=== PATIENT | male | born 1995 | race Caucasian/White ===

== ENCOUNTER → 2020-08-03 08:34 | Outpatient (CLI) | payer BC, SELFPAY ==
--- NOTE | 2020-08-03 08:38 | US_ITS ---
STUDY: ABDOMINAL ULTRASOUND - RIGHT UPPER QUADRANT REASON FOR VISIT: Male, 24 years old ABD PAIN , GENERALIZED ABD PAIN TECHNIQUE: Ultrasound evaluation of the right upper quadrant was performed with real-time and static love-scale imaging. TECHNICAL QUALITY: Adequate. COMPARISON: None. FINDINGS: Liver: The liver measures 14.9 cm. There is increased echogenicity consistent with fatty infiltration. The bile ducts are within normal limits. There is hepatic color flow. The direction of portal flow is hepatopetal. There is no demonstrated mass lesion. Gallbladder: Normal distended gallbladder. The gallbladder wall measures 2.8 mm. There is a negative sonographic Galvez''s sign. There is no pericholecystic fluid. There are no gallstones. Common Bile Duct (C.B.D.): The common bile duct measures 3.3 mm. Pancreas: Normal size of the head, body and tail of the pancreas. There is normal echogenicity of the pancreas. There is no demonstrated pancreatic mass or cyst. Right Kidney: Normal size of the right kidney. The right kidney measures the right kidney measures 11 cm x 4.9 cm x 4.6 cm. Normal renal cortex. The right cortex measures 1.7 cm. There is no demonstrated renal mass or cyst. There is no right hydronephrosis. US/Abdomen Limited IMPRESSION: Normal right upper quadrant ultrasound examination. Electronically Signed: Robin Bennett, at 10:46 EDT , Service support ,
== END ==
PROVIDERS: PCP Family Medicine; Referring Provider Family Medicine; Visit Provider Family Medicine
DX: R10.84 Generalized abdominal pain (principal)
CPT/HCPCS: 76705

== ENCOUNTER → 2020-08-14 15:48 | Outpatient (CLI) | payer BC, SELFPAY ==
[2015-08-20 11:58] VITALS: BMI 26.1
[2020-08-14 19:10] LABS: Thyroid Stim Hormone (TSH) 1.25 uIU/mL (0.358-3.74)
[2020-08-16 16:08] LABS: Endomysial Antibody IgA Negative (Negative)
[2020-08-16 20:56] LABS: Deamidated Gliadin IgA 6 units (0-19); Deamidated Gliadin IgG 3 units (0-19); Immunoglobulin A 243 mg/dL (90-386); t-Transglutaminase IgA <2 U/mL (0-3)
== END ==
PROVIDERS: PCP Family Medicine; Referring Provider Family Medicine; Visit Provider Family Medicine
DX: R10.84 Generalized abdominal pain (principal)
CPT/HCPCS: 36415; 82784; 83516; 84443; 86255

== ENCOUNTER → 2021-03-30 12:07 | Outpatient (CLI) | payer BC, SELFPAY ==
--- NOTE | 2021-03-30 12:10 | RAD_ITS ---
STUDY: X-RAY - UNILATERAL RIBS ( RIGHT ) WITH CHEST REASON FOR EXAM: Male, 25 years old. PAIN TECHNIQUE - RIBS: 4 view(s) of the ribs. TECHNIQUE - CHEST: PA and lateral views of the chest. COMPARISON: 08/20/2015 FINDINGS - RIBS: Normal visualized ribs without a demonstrated fracture. FINDINGS - CHEST: The lungs are clear and expanded. There is no demonstrated pleural abnormality. Normal size heart. Normal mediastinum and milli. Normal visualized pulmonary arteries. Normal visualized aortic arch and descending thoracic aorta. Normal visualized thoracic spine. Normal visualized ribs, clavicles, and shoulders. There is no demonstrated abnormality of the visualized soft tissue structures of the upper abdomen. RAD/Ribs Uni Min 3V w/PA Chest IMPRESSION: RIBS: Normal x-ray examination of the ribs. CHEST: Normal x-ray examination of the chest. Electronically Signed: Brennon Blas MD at 6:23 EDT Tel , Service support ,
== END ==
PROVIDERS: PCP Family Medicine; Referring Provider Family Medicine; Visit Provider Family Medicine
DX: R07.81 Pleurodynia (principal)
CPT/HCPCS: 71101

== ENCOUNTER → 2021-04-04 12:46 | Outpatient (CLI) | payer BC, SELFPAY ==
[2015-08-20 11:58] VITALS: BMI 26.1
--- NOTE | 2021-04-04 12:49 | US_ITS ---
STUDY: RENAL ULTRASOUND - COMPLETE REASON FOR EXAM: Male, 25 years old. rule out polycystic kidney disease TECHNIQUE: Ultrasound evaluation of the kidneys was performed with real-time and static sheldon-scale imaging. COMPARISON: None. FINDINGS: RIGHT KIDNEY: Normal location of the right kidney, which is normal in size. The right kidney measures 11.5 x 5.6 x 5.1 cm. There is a normal cortex of the right kidney. The renal cortex measures 1.8 cm. There is no right renal mass or cyst. There are no right renal calculi. There is no right hydronephrosis. DISTAL RIGHT URETER: There is non-visualization of the distal right ureter. There is no demonstrated right ureterovesical junction calculus. There is a visualized right ureteral jet. LEFT KIDNEY: Normal location of the left kidney, which is normal in size. The left kidney measures 11.7 x 5.7 x 5.2 cm. There is a normal cortex of the left kidney. The renal cortex measures 2.3 cm. There is no left renal mass or cyst. There are no left renal calculi. There is no left hydronephrosis. DISTAL LEFT URETER: There is non-visualization of the distal left ureter. There is no demonstrated left ureterovesical junction calculus. There is a visualized left ureteral jet. BLADDER: The distended urinary bladder has a volume of 126 ml. The empty urinary bladder has a volume of ml. There is a normal wall thickness of the distended urinary bladder. There is no demonstrated mass within the urinary bladder. There are no demonstrated bladder calculi. US/Kidney and Bladder IMPRESSION: Normal ultrasound of the kidneys and urinary bladder. Electronically Signed: Jose Phillips MD at 17:09 EDT , Service support ,
== END ==
PROVIDERS: PCP Family Medicine; Referring Provider Family Medicine; Visit Provider Family Medicine
DX: R10.84 Generalized abdominal pain (principal); Z82.71 Family history of polycystic kidney
CPT/HCPCS: 76770

== ENCOUNTER 2021-04-08 22:07 | Inpatient (IN) | payer BC, SELFPAY ==
[2021-04-08 22:08] VITALS: BP 168/96; PULSE 110; PULSE 137; RESP 24; TEMP 38.8; O2SAT 92; BMI 34.4
[2021-04-08 22:13] VITALS: BP 168/96; PULSE 110; RESP 24; TEMP 38.8; O2SAT 92
[2021-04-08 22:29] VITALS: O2SAT 94
[2021-04-08 22:44] LABS: Bacteria 0 SEEN /hpf (None Seen); Mucous, Urine 0 SEEN /hpf (<or=2+); Red Blood Cells-Urine 0 SEEN /hpf (0-5); Squamous Epithelial Cells - UA 0 SEEN /hpf (0-5); White Blood Cells 0 SEEN /hpf (0-5)
[2021-04-08 22:46] LABS: Absolute Lymphocyte Count 1.04 X10^3/uL (0.83-4.51); Absolute Neutrophil Count 21.3 X10^3/uL (2.0-7.7); Basophil# 0.05 X10^3/uL; Basophil% 0.2 % (0-1); Color, Urine Straw (Yellow); Eosinophil# 0.06 X10^3/uL; Eosinophils% 0.2 % (0-5); Glucose, Dipstick Normal (Normal); Hematocrit 43.1 % (40-54); Hemoglobin 14.7 g/dL (13.0-16.5); Ketone-Dipstick 5 mg/dl (Negative); Leukocyte Esterase-Dipstick Negative /ul (Negative); Lymphocyte # 1.04 X10^3/ul (0.83-4.51); Lymphocyte % 4.3 % (19-41); Mean Corp Hgb Conc 34.1 g/dL (32-36); Mean Corpuscular Hgb 29.9 pg (27.0-32.0); Mean Corpuscular Volume 87.6 fL (80-94); Mean Platelet Vol. 8.8 fl (6.2-12.0); Monocyte# 1.67 X10^3/uL; Monocyte% 6.8 % (0-10); NRBC Flagged by Analyzer 0 % (0-5); Neutrophil # 21.32 X10^3/uL (2.7-7.7); Neutrophil % 87.4 % (47-70); Nitrite-Dipstick Negative (Negative); Occult Blood-Urine Negative /ul (Negative); POSITIVE DIFFERENTIAL YES; Platelet Count 541 K/mm3 (150-450); Protein-Dipstick Negative (Negative); RBC Distribution Width CV 11.9 % (11.6-14.6); RBC Distribution Width SD 38.3 fl (35.1-43.9); Red Blood Count 4.92 M/mm3 (4.6-6.2); Specific Gravity, Urine 1.005 (1.002-1.030); Urine Bilirubin Dipstick Negative (Negative); Urine Clarity Clear (Clear); Urine Urobilinogen Normal (Normal); White Blood Count 24.4 K/mm3 (4.4-11.0)
[2021-04-08] MEDS: Morphine 4 MG/ML Syringe IV (22:49)
[2021-04-08] MEDS: Acetaminophen 500 MG Tablet 1000 MG PO (22:49)
[2021-04-08] MEDS: 0.9% Normal Saline 1,000 ML 1000 ML IV (22:49)
--- NOTE | 2021-04-08 22:50 | RAD_ITS ---
STUDY: X-RAY CHEST REASON FOR EXAM: Male, 25 years old. Dyspnea TECHNIQUE: Single AP portable view of the chest. COMPARISON: 03/30/2021. FINDINGS: Marked change in the appearance of the right lung which is now markedly opacified with elevation of the right hemidiaphragm. This rapid change could represent central mucous plugging and marked atelectasis. CT scan recommended. Infiltrate and effusion are not excluded. Left lung is clear. Normal size heart. Normal mediastinum and milli. Normal visualized pulmonary arteries. Normal visualized aortic arch and descending thoracic aorta. Normal visualized thoracic spine. Normal visualized ribs, clavicles, and shoulders. There is no demonstrated abnormality of the visualized soft tissue structures of the upper abdomen. RAD/Chest 1 View (Portable) IMPRESSION: Significant, rapid changes since previous study. Near-complete opacification of the right hemithorax. CT is recommended. Electronically Signed: Jose Phillips MD at 23:21 EDT , Service support ,
[2021-04-08 22:59] LABS: ALB/GLOB Ratio 0.6 RATIO (0.9-2.4); AST(SGOT) 22 U/L (15-37); Alanine Aminotransfer ALT/SGPT 83 U/L (16-61); Albumin, Serum 3.2 g/dL (3.2-5.0); Alkaline Phosphatase 101 U/L (45-117); Anion Gap 9 (5-15); BUN 5 mg/dL (7-18); BUN/Creat Ratio 5.1 RATIO (10-20); Calcium,Total 9.5 mg/dL (8.5-10.1); Chloride 97 mmol/L (98-107); Creatinine, Serum 0.98 mg/dL (0.70-1.30); EST Glomerular Filtration Rate 100 mL/min (>60); Est Glom Filt Rate - Afr Amer 121 mL/min (>60); Estimated Creatinine Clearance 108.67 ml/min; Glucose 107 mg/dL (74-106); Protein, Total 8.2 g/dL (6.4-8.2); Sodium Level 133 mmol/L (136-145)
--- NOTE | 2021-04-08 22:59 | ED.VIS.DYS ---
HPI History of Present Illness Chief Complaint: Shortness of Breath Informant: patient Onset/Context/Timing Onset: Weeks (2) Context: gradual Timing: Continuous Quality: Positive for - (Sharp pain) Worsened by: Coughing and other (Deep breathing) Relieved by: other (Heat, cold, massage) Associated Symptoms cough, fever, chills and clear sputum; Negative for rhinorrhea, post nasal drip, ear pain or sore throat Chest Pain: Positive for Sharp Narrative Narrative: Patient presents with shortness of breath that has been getting progressively worse over the past 2 weeks. Patient states it is gradually gotten worse. Patient states he does have some pain in his right upper thoracic area. Patient states it is sharp. Patient states it is worse with coughing, deep breathing, sneezing, or vomiting. Patient states it did get better with some massage as well as some heat and cold treatments. Patient admits to a cough but is only having clear sputum production. Patient admits to fevers and chills. Patient admits to some right upper chest pain. Patient describes this as sharp. PE Risk Factors: Negative for Cancer, OCP + Smoking + > 35, Prior DVT or PE, Recent surgery and Recent travel [facility] Home Medications omeprazole 20 mg PO DAILY #30 capsule 08/20/15 [Rx Last Taken Unknown] sucralfate 1 g PO 4X/DAY #400 ml 08/20/15 [Rx Last Taken Unknown] tizanidine 4 mg PO Q6H PRN PRN 04/08/21 [History Last Taken Unknown] Allergy/AdvReac Type Severity Reaction Status Date / Time No Known Allergies Allergy Verified 08/20/15 11:57 Surgical History History of adenoidectomy Hx of tympanostomy tubes Social History Smoking Status: Never smoker ROS ROS ED Constitutional Constitutional ED: Reports chills, fever(s) and sweats Eyes Eyes: Denies blurry vision or change in vision ENT ENT ED: Denies rhinorrhea or sore throat Cardiovascular Cardiovascular: Reports chest pain; Denies palpitations Respiratory/Chest Respiratory/Chest: Reports cough and dyspnea Gastrointestinal Gastrointestinal: Reports nausea and vomiting Genitourinary Genitourinary ED: Denies dysuria or hematuria Musculoskeletal Musculoskeletal: Reports back pain; Denies neck pain Integumentary Denies abscess or rash Neurologic Neurologic: Reports headache(s); Denies weakness Allergic/Immunologic Allergic/Immunologic ED: Denies mouth swelling or urticaria EXAM Physical Exam Const Vital Signs: 04/08/21 22:08 04/08/21 22:13 04/08/21 22:29 Temperature 102 F H 102 F H Temperature Source Oral Oral Pulse Rate 110 H 110 H Respiratory Rate 24 H 24 H Respiratory Effort Normal Non-Labored Respiratory Depth Normal Respiratory Pattern Normal Blood Pressure 168/96 H 168/96 H Blood Pressure Mean 120 120 Pulse Ox 92 92 Oxygen Delivery Method Room Air Room Air Room Air Oxygen Flow Rate (L/min) 04/08/21 23:13 04/09/21 00:00 04/09/21 00:08 Temperature 100 F H 99.3 F H Temperature Source Temporal Temporal Pulse Rate 122 H 122 H Respiratory Rate 23 H 23 H Respiratory Effort Respiratory Depth Respiratory Pattern Blood Pressure 144/79 H 152/78 H Blood Pressure Mean 100 102 Pulse Ox 92 89 94 Oxygen Delivery Method Room Air Room Air Nasal Cannula Oxygen Flow Rate (L/min) 2 04/09/21 01:00 04/09/21 02:00 Temperature 99.3 F H 98.3 F Temperature Source Temporal Temporal Pulse Rate 113 H 113 H Respiratory Rate 26 H 23 H Respiratory Effort Respiratory Depth Respiratory Pattern Blood Pressure 134/70 H 144/106 H Blood Pressure Mean 91 118 Pulse Ox 95 95 Oxygen Delivery Method Nasal Cannula Nasal Cannula Oxygen Flow Rate (L/min) 2 2 Positive well nourished and well developed General Appearance ED: well developed HEENT Reports moist mucous membranes normocephalic and atraumatic Neck supple and no JVD Resp normal respiratory effort Auscultation: diminished lung sounds diffuse Cardio regular rhythm and no murmurs Rate: regular rate and tachycardic Rhythm: regular rhythm GI non-tender and non-distended Auscultation: normoactive bowel sounds Palpation: soft Extremity normal to inspection General Extremety ED: Negative for edema or tenderness General Extremity: Negative for edema Neuro oriented x3, CN's II-XII intact bilaterally and no sensory deficits noted Sensorium / Orientation: alert Motor Exam: strength 5/5 throughout Psych mental status grossly normal Skin Rashes: no rashes MDM MDM MDM Narrative Medical decision making narrative: Patient was given IV fluids, Tylenol, and morphine here. CBC shows a leukocytosis of 24.4. Platelets were elevated at 541. Comprehensive metabolic profile showed a slightly elevated total bilirubin of 1.3. Urinalysis was within normal limits. COVID-19 rapid antigen was obtained and was negative. D-dimer was obtained and was elevated at 2.82. Portable chest x-ray was obtained. There is 1 view. On my interpretation, there is a large pleural effusion on the right. There is no acute infiltrate noted. Cardiac silhouette was normal. Bony thorax is normal. Because of this and the elevated D-dimer, CTA of the chest was obtained. There is no evidence of pulmonary embolism or arterial dissection. There is a large loculated pleural effusion on the right with multiple areas of significant atelectasis. There is no infiltrate noted. There is no left pleural effusion. There is some mild left basilar atelectasis. This was interpreted by the radiologist and reviewed by myself. Lactate was obtained and was normal. Case was discussed with the hospitalist. He was in to evaluate the patient. He recommended starting the patient on Levaquin and vancomycin for possible pneumonia. This was ordered. Patient will be admitted. Patient and family understood and were agreeable with the plan. All questions were answered. Lab Data Attestation: I reviewed the patient's lab results. Labs: Laboratory Results - last 24 hr 04/08/21 04/08/21 04/08/21 22:25 22:25 22:25 WBC 24.4 H RBC 4.92 Hgb 14.7 Hct 43.1 MCV 87.6 MCH 29.9 MCHC 34.1 RDW Std Deviation 38.3 RDW Coeff of Eamon 11.9 Plt Count 541 H MPV 8.8 Immature Gran % (Auto) 1.100 H Neut % (Auto) 87.4 H Lymph % (Auto) 4.3 L [place] % (Auto) 6.8 Eos % (Auto) 0.2 Baso % (Auto) 0.2 Absolute Neuts (auto) 21.3 H Absolute Lymphs (auto) 1.04 Nucleated RBC % 0 Differential Comment SEE COMMENTS Diff Path Review May foll Platelet Estimate MOD INC RBC Morphology N CHROM Anisocytosis RARE D-Dimer Quant (PE/DVT) Sodium 133 L Potassium 4.0 Chloride 97 L Carbon Dioxide 27.0 Anion Gap 9 BUN 5 L Creatinine 0.98 Estim Creat Clear Calc 108.67 Est GFR (MDRD) Af Amer 121 Est GFR (MDRD) Non-Af 100 BUN/Creatinine Ratio 5.1 L Glucose 107 H Lactic Acid Calcium 9.5 Total Bilirubin 1.30 H AST 22 ALT 83 H Alkaline Phosphatase 101 Total Protein 8.2 Albumin 3.2 Globulin 5.0 H Albumin/Globulin Ratio 0.6 L Urine Color Straw Urine Clarity Clear Urine pH 7.0 Ur Specific [place] 1.005 Urine Protein Negative Urine Glucose (UA) Normal Urine Ketones 5 H Urine Occult Blood Negative Urine Nitrite Negative Urine Bilirubin Negative Urine Urobilinogen Normal Ur Leukocyte Esterase Negative Urine RBC 0 SEEN Urine WBC 0 SEEN Ur Squamous Epith Cells 0 SEEN Urine Bacteria 0 SEEN Urine Mucus 0 SEEN 04/08/21 04/09/21 22:45 01:47 WBC RBC Hgb Hct MCV MCH MCHC RDW Std Deviation RDW Coeff of Eamon Plt Count MPV Immature Gran % (Auto) Neut % (Auto) Lymph % (Auto) [place] % (Auto) Eos % (Auto) Baso % (Auto) Absolute Neuts (auto) Absolute Lymphs (auto) Nucleated RBC % Differential Comment Diff Path Review Platelet Estimate RBC Morphology Anisocytosis D-Dimer Quant (PE/DVT) 2.82 H* Sodium Potassium Chloride Carbon Dioxide Anion Gap BUN Creatinine Estim Creat Clear Calc Est GFR (MDRD) Af Amer Est GFR (MDRD) Non-Af BUN/Creatinine Ratio Glucose Lactic Acid 1.0 Calcium Total Bilirubin AST ALT Alkaline Phosphatase Total Protein Albumin Globulin Albumin/Globulin Ratio Urine Color Urine Clarity Urine pH Ur Specific [place] Urine Protein Urine Glucose (UA) Urine Ketones Urine Occult Blood Urine Nitrite Urine Bilirubin Urine Urobilinogen Ur Leukocyte Esterase Urine RBC Urine WBC Ur Squamous Epith Cells Urine Bacteria Urine Mucus Radiography Chest X-Ray - ED: 1 View, Read by ED Physician, Read by Radiologist and Right Effusion Diagnostic Testing: Radiology Impression Chest X-Ray 04/08/21 22:50 IMPRESSION: Significant, rapid changes since previous study. Near-complete opacification of the right hemithorax. CT is recommended. Electronically Signed: Jose Phillips MD at 23:21 EDT , Service support , Chest CTA 04/08/21 23:41 IMPRESSION: Negative CTA chest examination, without a demonstrated pulmonary embolism or arterial dissection. Large loculated pleural effusion on the right with multiple areas of significant atelectasis of the right lower lobe as well as right middle lobe and right upper lobe. Areas of mild atelectasis predominantly at the left lung base, remainder of the left lung parenchyma is clear. No left-sided pleural effusion. Diffuse fatty liver. Electronically Signed: Shanelle Jiménez MD at 0:26 EDT , Service support , Treatment and Re-Evaluation Vital Sign Attestation:: Vital signs were reviewed prior to admission. Patient is still slightly tachycardic but this is improved from before. Patient is now afebrile. Discharge Plan Dx/Rx/DC Orders Clinical Impression: Pleural effusion on right Disposition Disposition: Acute Care [facility]
[2021-04-08 23:13] VITALS: BP 144/79; PULSE 122; RESP 23; TEMP 37.7; O2SAT 92
[2021-04-08 23:16] LABS: D-Dimer Quantitative (DVT/PE) 2.82 FEU/ug/m (0.27-0.49)
[2021-04-08 23:21] LABS: Differential Indicated SCAN CRITERIA MET
[2021-04-08 23:23] LABS: Anisocytosis RARE; Differential Comment SEE COMMENTS; Platelet Estimate MOD INC (ADEQ); Red Cell Morphology N CHROM NORMAL (NORM C&C)
--- NOTE | 2021-04-08 23:41 | CT_ITS ---
STUDY: CTA CHEST REASON FOR EXAM: Male, 25 years old. Elevated D-dimer RADIATION DOSAGE (If Supplied By Facility): CTDIvol = ( 13.85 ) mGy, DLP = ( 566.37 ) mGycm TECHNIQUE: The examination was performed with the intravenous administration of IV 100mL Isovue-370. Post-processing of the angiographic images was performed, with multiplanar reformation and 3D reconstruction. Individualized dose optimization techniques were used for this CT. COMPARISON: None. FINDINGS: Normal enhancement of the main pulmonary artery and right and left pulmonary arteries. Normal enhancement of the bilateral peripheral pulmonary arteries. There is no demonstrated pulmonary embolism. Normal thoracic aorta and visualized great vessels. There is no demonstrated aortic dissection. Normal heart and pericardium. Calcified lymph nodes within the mediastinum which may represent sequela previous granulomatous infection. There is infracarinal lymph node enlargement measuring 1.8 x 1.0 cm. Normal hilar regions. Normal visualized trachea and bronchi. There is significant atelectasis involving the right lung field, most severely involving the right lower lobe Areas of left lower lobe and mild lingular atelectasis noted. Remainder of the left lung parenchyma is normal. There is a large right-sided loculated pleural effusion. There is prominent right-sided pericardial fat with significant stranding/inflammation at this level. Normal chest wall structures. Normal osseous structures. Upper abdomen reveals fatty infiltrations throughout the liver. Remainder of the visualized upper abdominal structures are unremarkable. No free fluid. CT/CTA Chest W/WO Contrast IMPRESSION: Negative CTA chest examination, without a demonstrated pulmonary embolism or arterial dissection. Large loculated pleural effusion on the right with multiple areas of significant atelectasis of the right lower lobe as well as right middle lobe and right upper lobe. Areas of mild atelectasis predominantly at the left lung base, remainder of the left lung parenchyma is clear. No left-sided pleural effusion. Diffuse fatty liver. Electronically Signed: Shanelle Jiménez MD at 0:26 EDT , Service support ,
[2021-04-09] VITALS (20 sets, daily range): BP systolic 132–181; BP diastolic 65–108; PULSE 105–145; RESP 22–56; TEMP 36.8–38.6; O2SAT 89–98; BMI 33.3
--- NOTE | 2021-04-09 | FLU_PTH ---
PATIENT: PIETER CAPPS LOC: MS3 U#:[id number] AGE/SX: 25/M ROOM: MO319 RE04/09/[address]: Dr. Bill Chang MD : 1995 BED: 1 DIS: 04/09/2021 SPEC #: [id number] RECD: 04/09/21 10:52 STATUS: SUNITHA IRIZARRY #: [id number] URBANO: 04/09/21 00:[address]: Bill Chang DEPT: CYTOLOGY RECD BY: Yaneth Hutchinson ENTERED: 04/09/21 13:44 SP TYPE: Fluid OTHR DR: MD Dr. Smith Caraballo MD Dr. Mark Tereletsky, DO Tissues: Pleural fluid, NOS Procedures: Special Stain Group II Surgery Specimen Level IV Cytospin Fluid HEADER OPERATION: Thoracentesis right PRE-OP DIAGNOSIS: Pleural effusion TISSUE SUBMITTED: Thoracentesis fluid for cytology DIAGNOSIS CYTOLOGY Thoracentesis fluid for cytology (cytospin and cell block): Negative for malignant cells. Special stain for acid fast bacilli is negative for organisms; matched control is appropriate. See comment. KEVEN:angeli 04/10/2021 COMMENT Clinical correlation and appropriate follow up are necessary. CYTOLOGY STUDY Slides are reviewed. CYTOLOGY GROSS Received is 5 ml of red cloudy fluid labeled with the patient's name and and designated per the requisition as thoracentesis. Submitted for cytology preparation including cell block. / angeli 04/09/21 TC:5 CPT: 54822, 36267 ,[id number]
[2021-04-09] MEDS: 0.9% Normal Saline 1,000 ML 1000 ML IV (00:02)
--- NOTE | 2021-04-09 01:51 | ED.RN ---
Per Dr. Justice mane with only 1 set of blood cultures being drawn at this time.
[2021-04-09] MEDS: levoFLOXacin IV 750 MG/150 ML BAG 100 MG IV (02:01)
--- NOTE | 2021-04-09 02:51 | PCM.HP.STD ---
[facility] - General General Date of Admission: 04/09/21 Date of Service: 04/09/21 Chief Complaint: Right-sided chest pain, shortness of breath HPI Narrative PIETER CAPPS, is a 25 M who presents to the emergency room at [facility] with a chief complaint of right-sided chest pain, cough productive of white sputum, and shortness of breath over the last 2 weeks. Patient denies any fever, he stated today he had chills. Patient has no chronic medical problems, he denies any contact with sick people, he has had one vaccination for COVID-19. Work-up in the emergency room included a chest x-ray which showed a large right pleural effusion, CT of the chest was performed which confirmed this, there were areas of atelectasis noted in the right lung, no active infiltrate was read out as being present. No evidence of pulmonary emboli were noted. Patient's white blood cell count was elevated, his D-dimer was elevated. Patient's sodium was slightly low at 133, bilirubin was elevated at 1.3, patient's lactic acid was 1. Patient required 2 L of nasal cannula oxygen to maintain his pulse ox above 90%. Patient's COVID-19 test was negative. I talked at length with the patient and his mother who was in the room at the time of my examination, patient will be admitted to [facility], he has received IV Levaquin and vancomycin, he will be seen in consultation by pulmonary medicine and undergo a right thoracentesis today. [facility] Home Medications omeprazole 20 mg PO DAILY #30 capsule 08/20/15 [Rx Last Taken Unknown] sucralfate 1 g PO 4X/DAY #400 ml 08/20/15 [Rx Last Taken Unknown] tizanidine 4 mg PO Q6H PRN PRN 04/08/21 [History Last Taken Unknown] Allergy/AdvReac Type Severity Reaction Status Date / Time No Known Allergies Allergy Verified 08/20/15 11:57 Surgical History History of adenoidectomy Hx of tympanostomy tubes Social History Smoking Status: Never smoker ROS Constitutional Constitutional: Reports chills, fatigue and malaise; Denies anorexia, change in weight, fever(s), night sweats or weakness Eyes Eyes: Denies blurry vision, change in vision, discharge from eye(s) or eye pain Cardiovascular Cardiovascular: Reports chest pain and dyspnea on exertion; Denies claudication, edema or palpitations Respiratory/Chest Respiratory/Chest: Reports productive cough and shortness of breath with exertion; Denies cough, hemoptysis or shortness of breath at rest Gastrointestinal Gastrointestinal: Denies abdominal pain, constipation, diarrhea, hematemesis, hematochezia, melena, nausea or vomiting Genitourinary Genitourinary: Denies dysuria, hematuria, urinary frequency, urinary hesitancy, urinary incontinence or urinary urgency Musculoskeletal Musculoskeletal: Denies back pain, joint pain, joint stiffness, joint swelling, myalgias or neck pain Neurologic Neurologic: Denies abnormal gait, abnormal speech, dizziness, focal weakness, headache(s), loss of vision, numbness, other visual disturbances, paresthesias, syncope or tingling Psychiatric Psychiatric: Denies anxiety, cognitive impairment, depression, irritability, mood swings or suicidal ideation Endocrine Endocrinology: Denies change in body appearance, cold intolerance, excessive sweating, heat intolerance, polydipsia or polyuria Hematologic/Lymphatic Hematologic/Lymphatic: Denies none, anemia, easy bleeding, easy bruising or lymphadenopathy Allergic/Immunologic Allergic/Immunologic: Denies rhinitis, urticaria, eczemia or asthma Vital Signs Vital Signs Vital Signs: 04/08/21 22:08 04/08/21 22:13 04/08/21 22:29 Temperature 102 F H 102 F H Temperature Source Oral Oral Pulse Rate 110 H 110 H Respiratory Rate 24 H 24 H Respiratory Effort Normal Non-Labored Respiratory Depth Normal Respiratory Pattern Normal Blood Pressure 168/96 H 168/96 H Blood Pressure Mean 120 120 Pulse Ox 92 92 Oxygen Delivery Method Room Air Room Air Room Air Oxygen Flow Rate (L/min) 04/08/21 23:13 04/09/21 00:00 04/09/21 00:08 Temperature 100 F H 99.3 F H Temperature Source Temporal Temporal Pulse Rate 122 H 122 H Respiratory Rate 23 H 23 H Respiratory Effort Respiratory Depth Respiratory Pattern Blood Pressure 144/79 H 152/78 H Blood Pressure Mean 100 102 Pulse Ox 92 89 94 Oxygen Delivery Method Room Air Room Air Nasal Cannula Oxygen Flow Rate (L/min) 2 04/09/21 01:00 04/09/21 02:00 04/09/21 02:44 Temperature 99.3 F H 98.3 F 98.3 F Temperature Source Temporal Temporal Temporal Pulse Rate 113 H 113 H 105 H Respiratory Rate 26 H 23 H 23 H Respiratory Effort Respiratory Depth Respiratory Pattern Blood Pressure 134/70 H 144/106 H 144/106 H Blood Pressure Mean 91 118 118 Pulse Ox 95 95 95 Oxygen Delivery Method Nasal Cannula Nasal Cannula Nasal Cannula Oxygen Flow Rate (L/min) 2 2 2 Weight Weight: 99.79 kg Body Mass Index (BMI) 34.4 Physical Exam Const alert, oriented x3, no apparent distress, average body habitus and healthy appearing General Appearance: cooperative, well kempt and well developed Orientation / Consciousness: awake, oriented to person, oriented to place and oriented to time HEENT normocephalic, head/scalp atraumatic, hearing grossly normal bilaterally and moist oral mucous membranes Eyes PERRL, EOMs intact bilaterally and conjunctivae normal Neck nuchal rigidity, supple, no JVD, thyroid normal and no carotid bruits General: trachea midline Resp normal respiratory effort, no retractions and no use of accessory muscles Resp Narrative: Decreased breath sounds were noted over the right lung barfield Auscultation: Negative for rales, rhonchi or wheezes Cardio regular rate, regular rhythm, S1 normal heart sound, S2 normal heart sound, no murmurs, no rub and no gallops Cardio Narrative: Patient is tachycardic GI normal to inspection, nondistended, normoactive bowel sounds, soft to palpation, non-tender and non-distended Extremity normal to inspection, full ROM and no clubbing, cyanosis or edema Skin no rashes or lesions noted, no wounds, skin turgor normal and no jaundice General Skin Exam: no breakdown Neuro oriented x3, CN's II-XII intact bilaterally, no focal motor deficits and no sensory deficits noted Sensorium / Orientation: awake and alert Speech: speech normal Motor Exam: strength 5/5 throughout Psych thought process normal and affect normal Results Lab / Micro Data Result Diagrams: 04/08/21 22:25 04/08/21 22:25 Labs: Laboratory Results - last 24 hr 04/08/21 04/08/21 04/08/21 22:25 22:25 22:25 WBC 24.4 H RBC 4.92 Hgb 14.7 Hct 43.1 MCV 87.6 MCH 29.9 MCHC 34.1 RDW Std Deviation 38.3 RDW Coeff of Eamon 11.9 Plt Count 541 H MPV 8.8 Immature Gran % (Auto) 1.100 H Neut % (Auto) 87.4 H Lymph % (Auto) 4.3 L [place] % (Auto) 6.8 Eos % (Auto) 0.2 Baso % (Auto) 0.2 Absolute Neuts (auto) 21.3 H Absolute Lymphs (auto) 1.04 Nucleated RBC % 0 Differential Comment SEE COMMENTS Diff Path Review May foll Platelet Estimate MOD INC RBC Morphology N CHROM Anisocytosis RARE D-Dimer Quant (PE/DVT) Sodium 133 L Potassium 4.0 Chloride 97 L Carbon Dioxide 27.0 Anion Gap 9 BUN 5 L Creatinine 0.98 Estim Creat Clear Calc 108.67 Est GFR (MDRD) Af Amer 121 Est GFR (MDRD) Non-Af 100 BUN/Creatinine Ratio 5.1 L Glucose 107 H Lactic Acid Calcium 9.5 Total Bilirubin 1.30 H AST 22 ALT 83 H Alkaline Phosphatase 101 Total Protein 8.2 Albumin 3.2 Globulin 5.0 H Albumin/Globulin Ratio 0.6 L Urine Color Straw Urine Clarity Clear Urine pH 7.0 Ur Specific [place] 1.005 Urine Protein Negative Urine Glucose (UA) Normal Urine Ketones 5 H Urine Occult Blood Negative Urine Nitrite Negative Urine Bilirubin Negative Urine Urobilinogen Normal Ur Leukocyte Esterase Negative Urine RBC 0 SEEN Urine WBC 0 SEEN Ur Squamous Epith Cells 0 SEEN Urine Bacteria 0 SEEN Urine Mucus 0 SEEN 04/08/21 04/09/21 22:45 01:47 WBC RBC Hgb Hct MCV MCH MCHC RDW Std Deviation RDW Coeff of [place] Plt Count MPV Immature Gran % (Auto) Neut % (Auto) Lymph % (Auto) [place] % (Auto) Eos % (Auto) Baso % (Auto) Absolute Neuts (auto) Absolute Lymphs (auto) Nucleated RBC % Differential Comment Diff Path Review Platelet Estimate RBC Morphology Anisocytosis D-Dimer Quant (PE/DVT) 2.82 H* Sodium Potassium Chloride Carbon Dioxide Anion Gap BUN Creatinine Estim Creat Clear Calc Est GFR (MDRD) Af Amer Est GFR (MDRD) Non-Af BUN/Creatinine Ratio Glucose Lactic Acid 1.0 Calcium Total Bilirubin AST ALT Alkaline Phosphatase Total Protein Albumin Globulin Albumin/Globulin Ratio Urine Color Urine Clarity Urine pH Ur Specific [place] Urine Protein Urine Glucose (UA) Urine Ketones Urine Occult Blood Urine Nitrite Urine Bilirubin Urine Urobilinogen Ur Leukocyte Esterase Urine RBC Urine WBC Ur Squamous Epith Cells Urine Bacteria Urine Mucus Micro: Microbiology 04/08/21 22:40 SARS-CoV-2 Antigen (Rapid) - Final Interface Orders Radiology Impression Chest X-Ray 04/08/21 22:50 IMPRESSION: Significant, rapid changes since previous study. Near-complete opacification of the right hemithorax. CT is recommended. Electronically Signed: Jose Phillips MD at 23:21 EDT , Service support , Chest CTA 04/08/21 23:41 IMPRESSION: Negative CTA chest examination, without a demonstrated pulmonary embolism or arterial dissection. Large loculated pleural effusion on the right with multiple areas of significant atelectasis of the right lower lobe as well as right middle lobe and right upper lobe. Areas of mild atelectasis predominantly at the left lung base, remainder of the left lung parenchyma is clear. No left-sided pleural effusion. Diffuse fatty liver. Electronically Signed: Shanelle Jiménez MD at 0:26 EDT , Service support , Assessment & Plan Assessment/Plan (1) Pleural effusion on right: PLAN: 1. Large right pleural effusion-felt to be probably parapneumonic in nature, patient will be admitted to [facility], he will be given vancomycin and Levaquin, he will be seen in consultation by pulmonary medicine and undergo right thoracentesis. Patient is aware that if he has an empyema he will need to be transferred to a tertiary hospital for further care. #2 probable right community-acquired pneumonia-again patient will be treated with antibiotics, urine will be collected for Legionella antigen and strep antigen. #3 mild hypoxia-secondary to #1 and #2, pulse ox will be monitored #4 elevated bilirubin-exact etiology unclear, may be secondary to Legionella pneumonia Charges/Coding Visit Charges Inpatient E&M: 31357 Init Hosp L3
[2021-04-09 03:24] LABS: International Normalized Ratio 1.3; Prothrombin Time (Protime)PT. 15.9 SECONDS (11.7-14.9)
--- NOTE | 2021-04-09 03:56 | US_ITS ---
PROCEDURE: ULTRASOUND GUIDED THORACENTESIS. DATE: 04/09/2021. INDICATION: Male, 25 years old. Right pleural effusion. PHYSICIAN: Robin Bennett M.D. PROCEDURE: The risks, benefits, and alternatives to the procedure were explained to the patient. The specific risks of bleeding, infection, and pneumothorax requiring chest tube insertion were discussed and accepted. Written informed consent was obtained. Ultrasonographic evaluation of the right upper pleural space was carried out. An adequate pocket was identified. The patient was placed in the sitting, upright position. The overlying skin was prepped and draped in sterile fashion. 1% lidocaine was administered subcutaneously for local anesthesia. Under ultrasound guidance, a 8 Kisw[place]ili thoracentesis needle/catheter system was advanced into the right posterior upper pleural fluid collection. Approximately 30 mL of blood tinged fluid was drained. The catheter was removed, and a sterile dressing was applied. A specimen was collected and sent to the laboratory for analysis, as requested by the referring clinician. The patient tolerated the procedure well. A chest x-ray was ordered. US/Thoracentesis W US IMPRESSION: Ultrasound-guided right thoracentesis. Electronically Signed: Robin Bennett MD at 11:24 EDT , Service support ,
[2021-04-09] MEDS: 0.9% Normal Saline 1,000 ML 125 ML IV (04:15)
[2021-04-09] MEDS: Acetaminophen 325 MG Tablet 650 MG PO ×2 (04:18→11:22)
--- NOTE | 2021-04-09 04:25 | PCM.RX.CS ---
Consult Pharmacy has been consulted to manage selected antiobiotic: Vancomycin Type of Consult: New start Suspected Infection: Pneumonia Labs: Sodium 133 mmol/L (136-145) L 04/08/21 22:25 Potassium 4.0 mmol/L (3.5-5.1) 04/08/21 22:25 Chloride 97 mmol/L (98-107) L 04/08/21 22:25 Carbon Dioxide 27.0 mmol/L (21.0-32.0) 04/08/21 22:25 Anion Gap 9 (5-15) 04/08/21 22:25 BUN 5 mg/dL (7-18) L 04/08/21 22:25 Creatinine 0.98 mg/dL (0.70-1.30) 04/08/21 22:25 Est GFR (MDRD) Af Amer 121 mL/min (>60) 04/08/21 22:25 Est GFR (MDRD) Non-Af 100 mL/min (>60) 04/08/21 22:25 BUN/Creatinine Ratio 5.1 RATIO (10-20) L 04/08/21 22:25 Glucose 107 mg/dL (74-106) H 04/08/21 22:25 Microbiology: Microbiology 04/08/21 22:40 Interface Orders SARS-CoV-2 Antigen (Rapid) - Final Weight used for dosin.6 kg Estimated Creatinine Clearance: 133 Goal Trough: 15-20 mcg/mL Pharmacy Plan for Drug Dosing: Pharmacy Service will continue to monitor and adjust dosing as required. Medications Vancomycin HCl 1,250 mg/ (Sodium Chloride) 275 mls @ 167 mls/hr IV Q8H BRIGETTE Discontinued Medications Vancomycin HCl 1,500 mg/ (Sodium Chloride) 530 mls @ 250 mls/hr IV X1 ONE Stop: 04/09/21 04:06 Last Admin: 04/09/21 04:14 Dose: 250 mls/hr Documented by: Follow-Up Labs: Trough Vancomycin Labs to be done on [date and time ordered]: 04/10 @ 9439
[2021-04-09] MEDS: Pantoprazole Sodium 20 MG Tablet PO (08:33)
[2021-04-09] MEDS: Morphine 4 MG/ML Syringe IV ×2 (08:33→11:22)
[2021-04-09] MEDS: 0.9% Saline Lock 10 ML Syringe IV (08:34)
--- NOTE | 2021-04-09 09:40 | CASEMGMT ---
Tertiary facilities in-network with patient's insurance: [facility], [facility], [employer], [facility], , [facility]
--- NOTE | 2021-04-09 10:07 | NURSING ---
pt to x rAY
--- NOTE | 2021-04-09 10:53 | RAD_ITS ---
STUDY: X-RAY CHEST REASON FOR EXAM: Male, 25 years old. Pneumothorax . Status post right thoracentesis. TECHNIQUE: AP inspiration and expiration views. COMPARISON: Comparison is made with prior study dated 04/08/2021. FINDINGS: There is complete opacification of the right hemithorax with shift of the heart and mediastinum towards the left side. No evidence of pneumothorax. RAD/Chest Insp/Exp 2 View IMPRESSION: Complete opacification of the right hemithorax with shift of the heart and mediastinal structures towards the left side. Electronically Signed: Robin Bennett MD at 11:09 EDT , Service support ,
[2021-04-09 11:33] LABS: Acid Fast Stain SEE PATHOLOGY REPORT; Cytology, Body Fluid / CSF SEE PATHOLOGY REPORT
[2021-04-09 11:38] LABS: Body Fluid Mononuclear WBC # 0.157 10^3/uL; Body Fluid Mononuclear WBC % 17.7 %; Body Fluid Polynuclear WBC # 0.729 10^3/uL; Body Fluid Polynuclear WBC % 82.3 %; Body Fluid Total Cells Counted 0.889 10^3/ul; Red Cell Count/Body Fluid 0.213 10^6/ul; White Blood Count/Body Fluid 0.886 10^3/uL
[2021-04-09 11:45] LABS: Appearance/Body Fluid CLOUDY; Auto B Fluid Analyzer BKGD Ct COUNTS W/IN LIMITS (W/IN LIMITS); Color/Body Fluid RED; Source- Body Fluid THORACENTESIS
[2021-04-09 12:20] LABS: Body Fluid QC Type(s) BF1Q; Lymphocytes 14 %; Monocytes 3 %; Neutrophil (Segs) 83 %
[2021-04-09 12:25] LABS: Glucose, Body Fluid 69 mg/dL (40-70); Protein, Body Fluid 5.1 g/dL (Not Establ.)
--- NOTE | 2021-04-09 12:25 | CON.PCM.CC_ITS ---
Assessment & Plan Assessment/Plan (1) Pleural effusion on right: (2) Empyema lung: (3) Severe sepsis: PLAN: RECOMMENDATIONS: 1. Continue supplemental oxygen as necessary 2. Empiric antibiotics 3. Transfer to tertiary center for cardiovascular evaluation 4. No bronchoscopy at this time IMPRESSIONS: 1. Acute hypoxic respiratory insufficiency secondary to probable right empyema Patient with significant loculated right-sided pleural effusion. Pleural studies are suggestive of an exudate there is neutrophilic with lower glucose at 69. Clinical suspicion for empyema. Exact etiology is unclear, but patient requires a chest tube versus VATS procedure at a [place] surgeons recommendation. Recommend transfer to a tertiary center for evaluation. This was discussed with the hospitalist. Chest x-ray shows whiteout of the right postprocedure, but this may be secondary to mainstem atelectasis from a loculation. Patient does report to marijuana, but no IV drug use. Exact nidus is unclear 2. Severe sepsis secondary to right empyema Patient with severe sepsis on presentation with evidence of endorgan damage in the lung with hypoxia. Patient is on systemic antibiotics at this time. Blood pressure has remained stable, but patient is febrile and tachycardic. D-dimer elevation likely secondary to acute infection. Creatinine clearance is maintained. Patient may require an echocardiogram for evaluation of endocarditis, but defer to tertiary facility. HPI Consult Data Date of Consult: 04/09/21 HPI Narrative HPI Narrative: PIETER CAPPS is a 25-year-old male, with past medical history listed below, who presented to [facility] on 04/08/2021 secondary to progressive shortness of breath over the last 2 weeks. Patient reportedly had started to develop back pain that was described as sharp. Patient reportedly had had some increased temperatures and a cough productive of clear sputum. Patient had had some sinus congestion, but attributed this to allergies. Patient does report to having a cold approximately 2 weeks ago. Patient also had a COVID-19 vaccination with Moderna and had reported fever for 24 to 48 hours, but this had subsided. Patient reportedly started to have fever and chills with some right upper chest pain. Patient did have a massage with mild improvement shortly thereafter, but woke up with worsening pain, so came to the ER for evaluation. In the ER, patient was noted to be febrile at 102 ?F, tachycardic at 110 bpm and tachypneic. Patient was hypertensive at 168/96, but saturating well on room air initially. Patient did require 2 L nasal cannula by the end of his ER stay. Patient was given IV fluids, Tylenol and morphine, laboratory work-up was significant for negative COVID-19, slightly elevated bilirubin at 1.3 and a normal urinalysis. Patient had a leukocytosis of 24.4 and had a large pleural effusion on chest x-ray. This was followed up by a CTA of the chest showing no PE, but a large loculated right pleural effusion with significant compressive atelectasis. Patient was given Levaquin and vancomycin and admitted to the floor. Patient was personally escorted to radiology for the thoracentesis. Patient reportedly has had a swelling on his right chest for several years. 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 Patient did state that this area was part of the massage. Patient does admit to smoking marijuana on the weekends, but denied any tobacco or IV drug use. Patient denied any recent trauma. Patient never had any previous pleural effusions. Review of systems otherwise negative from a constitutional, HEENT, respiratory, cardiovascular, GI, genitourinary, musculoskeletal, skin, neurologic, psychiatric and hematologic system unless stated above. [facility] Medical History Anxiety Seizures Home Medications tizanidine 4 mg PO Q6H PRN PRN 04/08/21 [History Last Taken 04/08/21] Allergy/AdvReac Type Severity Reaction Status Date / Time No Known Allergies Allergy Verified 08/20/15 11:57 Surgical History History of adenoidectomy Hx of tympanostomy tubes Social History Smoking Status: Never smoker ROS ROS Narrative See HPI Physical Exam Const oriented x3 General Appearance: cooperative, in distress Positive for moderate, anxious and ill appearing Positive for acutely Orientation / Consciousness: awake, oriented to person, oriented to place and oriented to time Exam Limitations: no limitations Nutritional Appearance: obese HEENT normocephalic and head/scalp atraumatic; Negative for moist oral mucous membranes Eyes PERRL, EOMs intact bilaterally and conjunctivae normal Neck full ROM Chest Chest: Negative for symmetrical chest wall rise Resp Effort and Inspection: able to speak in complete sentences, tachypneic and other Decreased excursion noted on the right Auscultation: clear to auscultation bilaterally, diminished lung sounds right, egophony and tactile fremitus present; Negative for rales, rhonchi or wheezes Percussion: dullness Upper: right and Mid: right Cardio S1 normal heart sound, S2 normal heart sound, no murmurs, no rub, no gallops and no JVD Rate: tachycardic GI normal to inspection, nondistended, normoactive bowel sounds Extremity no clubbing, cyanosis or edema Skin no rashes or lesions noted Neuro oriented x3 and CN's II-XII intact bilaterally Psych cooperative and affect normal Lab / Micro Data Result Diagrams: 04/08/21 22:25 04/08/21 22:25 Labs: Laboratory Results - last 24 hr 04/08/21 04/08/21 04/08/21 22:25 22:25 22:25 WBC 24.4 H RBC 4.92 Hgb 14.7 Hct 43.1 MCV 87.6 MCH 29.9 MCHC 34.1 RDW Std Deviation 38.3 RDW Coeff of Emaon 11.9 Plt Count 541 H MPV 8.8 Immature Gran % (Auto) 1.100 H Neut % (Auto) 87.4 H Lymph % (Auto) 4.3 L [place] % (Auto) 6.8 Eos % (Auto) 0.2 Baso % (Auto) 0.2 Absolute Neuts (auto) 21.3 H Absolute Lymphs (auto) 1.04 Nucleated RBC % 0 Differential Comment SEE COMMENTS Diff Path Review May foll Platelet Estimate MOD INC RBC Morphology N CHROM Anisocytosis RARE PT INR D-Dimer Quant (PE/DVT) Sodium 133 L Potassium 4.0 Chloride 97 L Carbon Dioxide 27.0 Anion Gap 9 BUN 5 L Creatinine 0.98 Estim Creat Clear Calc 108.67 Est GFR (MDRD) Af Amer 121 Est GFR (MDRD) Non-Af 100 BUN/Creatinine Ratio 5.1 L Glucose 107 H Lactic Acid Calcium 9.5 Total Bilirubin 1.30 H AST 22 ALT 83 H Alkaline Phosphatase 101 Total Protein 8.2 Albumin 3.2 Globulin 5.0 H Albumin/Globulin Ratio 0.6 L Urine Color Straw Urine Clarity Clear Urine pH 7.0 Ur Specific [place] 1.005 Urine Protein Negative Urine Glucose (UA) Normal Urine Ketones 5 H Urine Occult Blood Negative Urine Nitrite Negative Urine Bilirubin Negative Urine Urobilinogen Normal Ur Leukocyte Esterase Negative Urine RBC 0 SEEN Urine WBC 0 SEEN Ur Squamous Epith Cells 0 SEEN Urine Bacteria 0 SEEN Urine Mucus 0 SEEN Fluid Source Fluid Color Fluid Appearance Fluid pH Fluid WBC Fluid RBC Fluid Tot Cell Count Fld Polynuclear WBCs # Fld Polynuclear WBCs % Fluid Mononuclear WBCs Fld Mononuclear WBCs % Fluid Neutrophils Fluid Lymphocytes Fluid Monocytes Fl Pathologist Comment Fluid Comment 2 04/08/21 04/08/21 04/09/21 22:45 22:45 01:47 WBC RBC Hgb Hct MCV MCH MCHC RDW Std Deviation RDW Coeff of Eamon Plt Count MPV Immature Gran % (Auto) Neut % (Auto) Lymph % (Auto) [place] % (Auto) Eos % (Auto) Baso % (Auto) Absolute Neuts (auto) Absolute Lymphs (auto) Nucleated RBC % Differential Comment Diff Path Review Platelet Estimate RBC Morphology Anisocytosis PT 15.9 H INR 1.3 D-Dimer Quant (PE/DVT) 2.82 H* Sodium Potassium Chloride Carbon Dioxide Anion Gap BUN Creatinine Estim Creat Clear Calc Est GFR (MDRD) Af Amer Est GFR (MDRD) Non-Af BUN/Creatinine Ratio Glucose Lactic Acid 1.0 Calcium Total Bilirubin AST ALT Alkaline Phosphatase Total Protein Albumin Globulin Albumin/Globulin Ratio Urine Color Urine Clarity Urine pH Ur Specific [place] Urine Protein Urine Glucose (UA) Urine Ketones Urine Occult Blood Urine Nitrite Urine Bilirubin Urine Urobilinogen Ur Leukocyte Esterase Urine RBC Urine WBC Ur Squamous Epith Cells Urine Bacteria Urine Mucus Fluid Source Fluid Color Fluid Appearance Fluid pH Fluid WBC Fluid RBC Fluid Tot Cell Count Fld Polynuclear WBCs # Fld Polynuclear WBCs % Fluid Mononuclear WBCs Fld Mononuclear WBCs % Fluid Neutrophils Fluid Lymphocytes Fluid Monocytes Fl Pathologist Comment Fluid Comment 2 04/09/21 04/09/21 04/09/21 10:20 10:20 10:20 WBC RBC Hgb Hct MCV MCH MCHC RDW Std Deviation RDW Coeff of Eamon Plt Count MPV Immature Gran % (Auto) Neut % (Auto) Lymph % (Auto) [place] % (Auto) Eos % (Auto) Baso % (Auto) Absolute Neuts (auto) Absolute Lymphs (auto) Nucleated RBC % Differential Comment Diff Path Review Platelet Estimate RBC Morphology Anisocytosis PT INR D-Dimer Quant (PE/DVT) Sodium Potassium Chloride Carbon Dioxide Anion Gap BUN Creatinine Estim Creat Clear Calc Est GFR (MDRD) Af Amer Est GFR (MDRD) Non-Af BUN/Creatinine Ratio Glucose Lactic Acid Calcium Total Bilirubin AST ALT Alkaline Phosphatase Total Protein Albumin Globulin Albumin/Globulin Ratio Urine Color Urine Clarity Urine pH Ur Specific [place] Urine Protein Urine Glucose (UA) Urine Ketones Urine Occult Blood Urine Nitrite Urine Bilirubin Urine Urobilinogen Ur Leukocyte Esterase Urine RBC Urine WBC Ur Squamous Epith Cells Urine Bacteria Urine Mucus Fluid Source THORACENTESIS Fluid Color Cancelled RED Fluid Appearance Cancelled CLOUDY Fluid pH Cancelled Fluid WBC 0.886 Fluid RBC Cancelled 0.213 Fluid Tot Cell Count 0.889 Fld Polynuclear WBCs # 0.729 Fld Polynuclear WBCs % 82.3 Fluid Mononuclear WBCs 0.157 Fld Mononuclear WBCs % 17.7 Fluid Neutrophils 83 Fluid Lymphocytes 14 Fluid Monocytes 3 Fl Pathologist Comment May follow Fluid Comment 2 SEE COMMENT Micro: Microbiology 04/08/21 22:25 Legionella Antigen - Final Urine, Clean Catch Streptococcus pneumoniae Antigen (M - Final 04/08/21 22:40 SARS-CoV-2 Antigen (Rapid) - Final Interface Orders Radiology Impression Chest X-Ray 04/08/21 22:50 IMPRESSION: Significant, rapid changes since previous study. Near-complete opacification of the right hemithorax. CT is recommended. Electronically Signed: Jose Phillips MD at 23:21 EDT , Service support , Chest CTA 04/08/21 23:41 IMPRESSION: Negative CTA chest examination, without a demonstrated pulmonary embolism or arterial dissection. Large loculated pleural effusion on the right with multiple areas of significant atelectasis of the right lower lobe as well as right middle lobe and right upper lobe. Areas of mild atelectasis predominantly at the left lung base, remainder of the left lung parenchyma is clear. No left-sided pleural effusion. Diffuse fatty liver. Electronically Signed: Shanelle Jiménez MD at 0:26 EDT , Service support , Thoracentesis Ultrasound 04/09/21 03:56 IMPRESSION: Ultrasound-guided right thoracentesis. Electronically Signed: Robin Bennett MD at 11:24 EDT , Service support , Chest X-Ray 04/09/21 10:53 IMPRESSION: Complete opacification of the right hemithorax with shift of the heart and mediastinal structures towards the left side. Electronically Signed: Robin Bennett MD at 11:09 EDT , Service support , Patient did have a thoracentesis in the right upper chest completed by interventional radiology. This produced only 30 cc of lorraine-colored fluid. Charges/Coding Visit Charges Inpatient E&M: 26410 Init Hosp L3
[2021-04-09 12:46] LABS: LDH,Body Fluid 1745 Units/l (Not Establ.)
--- NOTE | 2021-04-09 13:15 | DS.PCM_ITS ---
Providers Date of Admission: 04/09/21 Primary Care Physician: Dr. Sofía Hartley MD Consultations 04/09/21 03:56 Consult: Lead Enterprise Architect / Pulmonary Medicine Routine Consulting Provider: Smith Navarro Reason for Consult: right pleural effusion EMERGENT Consult: No MD Notified: Yes Date Notified:: 04/09/21 Time Notified: 06:23 Method of Notification: Text Reason For Visit: RIGHT PLEURAL EFFUSION, COMMUNITY ACQUIRED PNEU Diagnosis Discharge Diagnosis (1) Pleural effusion on right: Status: Acute Code(s): J90 - Pleural effusion, not elsewhere classified (2) Empyema lung: Status: Acute Code(s): J86.9 - Pyothorax without fistula (3) Severe sepsis: Status: Acute Code(s): A41.9 - Sepsis, unspecified organism; R65.20 - Severe sepsis without septic sh ock (4) Mediastinal shift: Status: Acute Code(s): R93.89 - Abnormal findings on diagnostic imaging of other specified body structures Medications at Discharge Home Medications tizanidine 4 mg PO Q6H PRN PRN 04/08/21 Hospital Course Operations None Procedures Thoracentesis Summary of Care Provided Minutes Spent on Discharge: 35 Hospital Course: Per HPI: PIETER CAPPS, is a 25 M who presents to the emergency room at [facility] with a chief complaint of right- sided chest pain, cough productive of white sputum, and shortness of breath over the last 2 weeks. Patient denies any fever, he stated today he had chills. Patient has no chronic medical problems, he denies any contact with sick people, he has had one vaccination for COVID-19. Work-up in the emergency room included a chest x-ray which showed a large right pleural effusion, CT of the chest was performed which confirmed this, there were areas of atelectasis noted in the right lung, no active infiltrate was read out as being present. No evidence of pulmonary emboli were noted. Patient's white blood cell count was elevated, his D-dimer was elevated. Patient's sodium was slightly low at 133, bilirubin was elevated at 1.3, patient's lactic acid was 1. Patient required 2 L of nasal cannula oxygen to maintain his pulse ox above 90%. Patient's COVID-19 test was negative. I talked at length with the patient and his mother who was in the room at the time of my examination, patient will be admitted to [facility], he has received IV Levaquin and vancomycin, he will be seen in consultation by pulmonary medicine and undergo a right thoracentesis today. Hospital Course: 1. Severe sepsis secondary to large right-sided empyema secondary to likely community-acquired pneumonia with a slight mediastinal shift to the left 72 male presented early this morning with shortness of breath and a cough. He also had some fevers and chills. He states that this is been going on for several weeks. Denies any type of traumatic mechanism and says that he did not feel sick other than the shortness of breath prior to presentation. He describes initial symptoms as thoracic back pain that improved with the deep tissue massage and TENS unit, he had seen his PCP who obtained a KUB looking for kidney stone and on that image there is no mention of any type of pulmonary pathology. He underwent a thoracentesis today attempt to drain as much as possible and only 30cc was drained and these were sent off for studies. However post procedure chest x-ray demonstrates rated a slightly deviated mediastinum therefore the decision was made to transfer him to [facility] for surgical intervention. He has been placed on broad-spectrum antibiotics and is currently awaiting transfer, he has been n.p.o. since 1130 this morning. He has been tachypneic and tachycardic throughout his entire stay however is only maintaining his oxygen saturation on 2 L nasal cannula. Covid was negative, blood cultures are pending, and Legionella and strep urine antigen are both negative as well. Physical Exam Const alert and oriented x3 HEENT normocephalic and moist oral mucous membranes Eyes PERRL, EOMs intact bilaterally and conjunctivae normal Neck supple and no JVD Resp Effort and Inspection: tachypneic and uses accessory muscles Auscultation: clear to auscultation bilaterally and breath sounds absent right; Negative for rales, rhonchi or wheezes Cardio S1 normal heart sound, S2 normal heart sound and no murmurs Rate: tachycardic GI soft to palpation, non-tender and non-distended; Negative for hepatosplenomegaly Extremity no clubbing, cyanosis or edema Skin no rashes or lesions noted Neuro no focal motor deficits and no sensory deficits noted Psych affect normal ABG / Lab / Microbiology Data Result Diagrams: 04/08/21 22:25 04/08/21 22:25 Laboratory: Laboratory Results - last 24 hr 04/08/21 04/08/21 04/08/21 22:25 22:25 22:25 WBC 24.4 H RBC 4.92 Hgb 14.7 Hct 43.1 MCV 87.6 MCH 29.9 MCHC 34.1 RDW Std Deviation 38.3 RDW Coeff of Eamon 11.9 Plt Count 541 H MPV 8.8 Immature Gran % (Auto) 1.100 H Neut % (Auto) 87.4 H Lymph % (Auto) 4.3 L [place] % (Auto) 6.8 Eos % (Auto) 0.2 Baso % (Auto) 0.2 Absolute Neuts (auto) 21.3 H Absolute Lymphs (auto) 1.04 Nucleated RBC % 0 Differential Comment SEE COMMENTS Diff Path Review May foll Platelet Estimate MOD INC RBC Morphology N CHROM Anisocytosis RARE PT INR D-Dimer Quant (PE/DVT) Sodium 133 L Potassium 4.0 Chloride 97 L Carbon Dioxide 27.0 Anion Gap 9 BUN 5 L Creatinine 0.98 Estim Creat Clear Calc 108.67 Est GFR (MDRD) Af Amer 121 Est GFR (MDRD) Non-Af 100 BUN/Creatinine Ratio 5.1 L Glucose 107 H Lactic Acid Calcium 9.5 Total Bilirubin 1.30 H AST 22 ALT 83 H Alkaline Phosphatase 101 Total Protein 8.2 Albumin 3.2 Globulin 5.0 H Albumin/Globulin Ratio 0.6 L Urine Color Straw Urine Clarity Clear Urine pH 7.0 Ur Specific [place] 1.005 Urine Protein Negative Urine Glucose (UA) Normal Urine Ketones 5 H Urine Occult Blood Negative Urine Nitrite Negative Urine Bilirubin Negative Urine Urobilinogen Normal Ur Leukocyte Esterase Negative Urine RBC 0 SEEN Urine WBC 0 SEEN Ur Squamous Epith Cells 0 SEEN Urine Bacteria 0 SEEN Urine Mucus 0 SEEN Fluid Source Fluid Color Fluid Appearance Fluid pH Fluid WBC Fluid RBC Fluid Tot Cell Count Fld Polynuclear WBCs # Fld Polynuclear WBCs % Fluid Mononuclear WBCs Fld Mononuclear WBCs % Fluid Neutrophils Fluid Lymphocytes Fluid Monocytes Fl Pathologist Comment Fluid Glucose Fluid Total Protein Fluid LDH Fluid Comment 2 04/08/21 04/08/21 04/09/21 22:45 22:45 01:47 WBC RBC Hgb Hct MCV MCH MCHC RDW Std Deviation RDW Coeff of Eamon Plt Count MPV Immature Gran % (Auto) Neut % (Auto) Lymph % (Auto) [place] % (Auto) Eos % (Auto) Baso % (Auto) Absolute Neuts (auto) Absolute Lymphs (auto) Nucleated RBC % Differential Comment Diff Path Review Platelet Estimate RBC Morphology Anisocytosis PT 15.9 H INR 1.3 D-Dimer Quant (PE/DVT) 2.82 H* Sodium Potassium Chloride Carbon Dioxide Anion Gap BUN Creatinine Estim Creat Clear Calc Est GFR (MDRD) Af Amer Est GFR (MDRD) Non-Af BUN/Creatinine Ratio Glucose Lactic Acid 1.0 Calcium Total Bilirubin AST ALT Alkaline Phosphatase Total Protein Albumin Globulin Albumin/Globulin Ratio Urine Color Urine Clarity Urine pH Ur Specific [place] Urine Protein Urine Glucose (UA) Urine Ketones Urine Occult Blood Urine Nitrite Urine Bilirubin Urine Urobilinogen Ur Leukocyte Esterase Urine RBC Urine WBC Ur Squamous Epith Cells Urine Bacteria Urine Mucus Fluid Source Fluid Color Fluid Appearance Fluid pH Fluid WBC Fluid RBC Fluid Tot Cell Count Fld Polynuclear WBCs # Fld Polynuclear WBCs % Fluid Mononuclear WBCs Fld Mononuclear WBCs % Fluid Neutrophils Fluid Lymphocytes Fluid Monocytes Fl Pathologist Comment Fluid Glucose Fluid Total Protein Fluid LDH Fluid Comment 2 04/09/21 04/09/21 04/09/21 10:20 10:20 10:20 WBC RBC Hgb Hct MCV MCH MCHC RDW Std Deviation RDW Coeff of Eamon Plt Count MPV Immature Gran % (Auto) Neut % (Auto) Lymph % (Auto) [place] % (Auto) Eos % (Auto) Baso % (Auto) Absolute Neuts (auto) Absolute Lymphs (auto) Nucleated RBC % Differential Comment Diff Path Review Platelet Estimate RBC Morphology Anisocytosis PT INR D-Dimer Quant (PE/DVT) Sodium Potassium Chloride Carbon Dioxide Anion Gap BUN Creatinine Estim Creat Clear Calc Est GFR (MDRD) Af Amer Est GFR (MDRD) Non-Af BUN/Creatinine Ratio Glucose Lactic Acid Calcium Total Bilirubin AST ALT Alkaline Phosphatase Total Protein Albumin Globulin Albumin/Globulin Ratio Urine Color Urine Clarity Urine pH Ur Specific [place] Urine Protein Urine Glucose (UA) Urine Ketones Urine Occult Blood Urine Nitrite Urine Bilirubin Urine Urobilinogen Ur Leukocyte Esterase Urine RBC Urine WBC Ur Squamous Epith Cells Urine Bacteria Urine Mucus Fluid Source THORACENTESIS Fluid Color Cancelled RED Fluid Appearance Cancelled CLOUDY Fluid pH Fluid WBC 0.886 Fluid RBC Cancelled 0.213 Fluid Tot Cell Count 0.889 Fld Polynuclear WBCs # 0.729 Fld Polynuclear WBCs % 82.3 Fluid Mononuclear WBCs 0.157 Fld Mononuclear WBCs % 17.7 Fluid Neutrophils 83 Fluid Lymphocytes 14 Fluid Monocytes 3 Fl Pathologist Comment May follow Fluid Glucose 69 Fluid Total Protein Fluid LDH Fluid Comment 2 SEE COMMENT 04/09/21 04/09/21 04/09/21 10:20 10:20 10:20 WBC RBC Hgb Hct MCV MCH MCHC RDW Std Deviation RDW Coeff of Eamon Plt Count MPV Immature Gran % (Auto) Neut % (Auto) Lymph % (Auto) [place] % (Auto) Eos % (Auto) Baso % (Auto) Absolute Neuts (auto) Absolute Lymphs (auto) Nucleated RBC % Differential Comment Diff Path Review Platelet Estimate RBC Morphology Anisocytosis PT INR D-Dimer Quant (PE/DVT) Sodium Potassium Chloride Carbon Dioxide Anion Gap BUN Creatinine Estim Creat Clear Calc Est GFR (MDRD) Af Amer Est GFR (MDRD) Non-Af BUN/Creatinine Ratio Glucose Lactic Acid Calcium Total Bilirubin AST ALT Alkaline Phosphatase Total Protein Albumin Globulin Albumin/Globulin Ratio Urine Color Urine Clarity Urine pH Ur Specific [place] Urine Protein Urine Glucose (UA) Urine Ketones Urine Occult Blood Urine Nitrite Urine Bilirubin Urine Urobilinogen Ur Leukocyte Esterase Urine RBC Urine WBC Ur Squamous Epith Cells Urine Bacteria Urine Mucus Fluid Source Fluid Color Fluid Appearance Fluid pH Cancelled Fluid WBC Fluid RBC Fluid Tot Cell Count Fld Polynuclear WBCs # Fld Polynuclear WBCs % Fluid Mononuclear WBCs Fld Mononuclear WBCs % Fluid Neutrophils Fluid Lymphocytes Fluid Monocytes Fl Pathologist Comment Fluid Glucose Fluid Total Protein 5.1 Fluid LDH 1745 Fluid Comment 2 Microbiology: Microbiology 04/09/21 10:20 Gram Stain - Final Fluid - Thoracentesis Fluid 04/08/21 22:25 Legionella Antigen - Final Urine, Clean Catch Streptococcus pneumoniae Antigen (M - Final 04/08/21 22:40 SARS-CoV-2 Antigen (Rapid) - Final Interface Orders Microbiology 04/09/21 10:20 Fluid - Thoracentesis Fluid Gram Stain - Final 04/08/21 22:25 Urine, Clean Catch Legionella Antigen - Final 04/08/21 22:25 Urine, Clean Catch Streptococcus pneumoniae Antigen (M - Final 04/08/21 22:40 Interface Orders SARS-CoV-2 Antigen (Rapid) - Final Radiography Diagnostic Testing: Radiology Impression Chest X-Ray 04/08/21 22:50 IMPRESSION: Significant, rapid changes since previous study. Near-complete opacification of the right hemithorax. CT is recommended. Electronically Signed: Jose Phillips MD at 23:21 EDT , Service support , Chest CTA 04/08/21 23:41 IMPRESSION: Negative CTA chest examination, without a demonstrated pulmonary embolism or arterial dissection. Large loculated pleural effusion on the right with multiple areas of significant atelectasis of the right lower lobe as well as right middle lobe and right upper lobe. Areas of mild atelectasis predominantly at the left lung base, remainder of the left lung parenchyma is clear. No left-sided pleural effusion. Diffuse fatty liver. Electronically Signed: Shanelle Jiménez MD at 0:26 EDT , Service support , Thoracentesis Ultrasound 04/09/21 03:56 IMPRESSION: Ultrasound-guided right thoracentesis. Electronically Signed: Robin Bennett MD at 11:24 EDT , Service support , Chest X-Ray 04/09/21 10:53 IMPRESSION: Complete opacification of the right hemithorax with shift of the heart and mediastinal structures towards the left side. Electronically Signed: Robin Bennett MD at 11:09 EDT , Service support , Meaningful Use Info Meaningful Use Diagnoses (Choose all that apply): None applicable Discharge Plan Admission Admit Date/Time: 04/09/21 02:51 Attending Provider: Bill Chang Primary Care Provider: Sofía Hartley Consulting Providers: Smith Navarro Instructions Patient Instructions: Thoracentesis Discharge Orders/Prescriptions Prescriptions: No Action tizanidine 4 mg tablet 4 mg PO Q6H PRN PRN (Reason: Muscle Spasm) RF: 0 Referrals / Follow Up: Sofía Hartley MD [Primary Care Provider] - Within 2 Weeks Disposition Disposition (needs filled in before D/C Order can be placed): Acute Care Hospital Charges/Coding Visit Charges OBSV E&M: 86574 Observ/hosp same date L3
[2021-04-09 13:33] LABS: Pathologist Review Reviewed
--- NOTE | 2021-04-09 14:42 | NURSING ---
called report to manuel rosales
--- NOTE | 2021-04-09 14:50 | PHA.DC.MR ---
Pharmacy Service has performed discharge medication reconciliation for this patient. The patient's discharge medication list was reviewed for discrepancies and discrepancies were resolved. Home Medications tizanidine 4 mg PO Q6H PRN PRN 04/08/21
--- NOTE | 2021-04-09 15:48 | NURSING ---
pt left via ambulance for [facility]. mother with pt.
[2021-04-10 10:51] LABS: Pathologist Comment/Body Fluid Reviewed
== END 2021-04-09 15:45 | disposition short-term general hospital (02) | DRG 871 ==
LOC: ED 04-09 02:44 → MS3 04-09 03:09
PROVIDERS: Admitting Provider Internal Medicine; Emergency Provider Emergency Medicine; PCP Family Medicine; Visit Provider Family Medicine
DX: A41.9 Sepsis, unspecified organism (principal); J18.9 Pneumonia, unspecified organism; J86.9 Pyothorax without fistula; J90 Pleural effusion, not elsewhere classified; R65.20 Severe sepsis without septic shock; D17.1 Benign lipomatous neoplasm of skin and subcutaneous tissue of trunk
CPT/HCPCS: 32555; 36415; 71045; 71046; 71275; 80053; 81001; 82945; 83605; 83615; 84157; 85025; 85379; 85610; 87040; 87070; 87075; 87077; 87186; 87205; 87426; 87449; 88108; 88305; 88313; 89050; 99251; 99285; J7030; J7040; J7050; Q9967; A4216; G0463

== ENCOUNTER 2021-04-30 14:51 | Outpatient (RCR) | payer BC, SELFPAY ==
[2021-04-09 04:04] VITALS: BMI 33.3
[2021-04-23 16:40] LABS: Absolute Lymphocyte Count 2.08 X10^3/uL (0.83-4.51); Absolute Neutrophil Count 5.1 X10^3/uL (2.0-7.7); Basophil# 0.05 X10^3/uL; Basophil% 0.6 % (0-1); Eosinophil# 0.07 X10^3/uL; Eosinophils% 0.9 % (0-5); Hematocrit 36.4 % (40-54); Hemoglobin 12.1 g/dL (13.0-16.5); Lymphocyte # 2.08 X10^3/ul (0.83-4.51); Lymphocyte % 26.2 % (19-41); Mean Corp Hgb Conc 33.2 g/dL (32-36); Mean Corpuscular Volume 90.1 fL (80-94); Mean Platelet Vol. 8.6 fl (6.2-12.0); Monocyte# 0.56 X10^3/uL; NRBC Flagged by Analyzer 0 % (0-5); Neutrophil # 5.06 X10^3/uL (2.7-7.7); Neutrophil % 63.7 % (47-70); Platelet Count 471 K/mm3 (150-450); RBC Distribution Width CV 12.5 % (11.6-14.6); RBC Distribution Width SD 40.8 fl (35.1-43.9); Red Blood Count 4.04 M/mm3 (4.6-6.2)
[2021-04-23 16:47] LABS: Creatinine, Serum 0.74 mg/dL (0.70-1.30); EST Glomerular Filtration Rate 138 mL/min (>60); Est Glom Filt Rate - Afr Amer 167 mL/min (>60)
[2021-04-30 15:53] LABS: Absolute Lymphocyte Count 1.75 X10^3/uL (0.83-4.51); Absolute Neutrophil Count 2.5 X10^3/uL (2.0-7.7); Basophil# 0.05 X10^3/uL; Eosinophil# 0.19 X10^3/uL; Eosinophils% 3.9 % (0-5); Hematocrit 39.1 % (40-54); Hemoglobin 12.8 g/dL (13.0-16.5); Lymphocyte # 1.75 X10^3/ul (0.83-4.51); Lymphocyte % 35.6 % (19-41); Mean Corp Hgb Conc 32.7 g/dL (32-36); Mean Corpuscular Hgb 29.3 pg (27.0-32.0); Mean Corpuscular Volume 89.5 fL (80-94); Mean Platelet Vol. 9.1 fl (6.2-12.0); Monocyte# 0.43 X10^3/uL; Monocyte% 8.7 % (0-10); NRBC Flagged by Analyzer 0 % (0-5); Neutrophil # 2.45 X10^3/uL (2.7-7.7); Neutrophil % 49.8 % (47-70); Platelet Count 343 K/mm3 (150-450); RBC Distribution Width CV 12.8 % (11.6-14.6); RBC Distribution Width SD 42.4 fl (35.1-43.9); Red Blood Count 4.37 M/mm3 (4.6-6.2); White Blood Count 4.9 K/mm3 (4.4-11.0)
[2021-04-30 16:18] LABS: Creatinine, Serum 0.74 mg/dL (0.70-1.30); EST Glomerular Filtration Rate 136 mL/min (>60); Est Glom Filt Rate - Afr Amer 165 mL/min (>60)
== END 2021-05-02 23:59 ==
LOC: HHLAB 14:51
PROVIDERS: PCP Family Medicine; Referring Provider Family Medicine; Visit Provider Family Medicine
DX: J86.9 Pyothorax without fistula (principal)
CPT/HCPCS: 82565; 85025

== ENCOUNTER 2021-05-08 15:58 | Outpatient (RCR) | payer BC, SELFPAY ==
[2021-04-09 04:04] VITALS: BMI 33.3
[2021-05-08 16:20] LABS: Absolute Neutrophil Count 2.7 X10^3/uL (2.0-7.7); Basophil# 0.07 X10^3/uL; Basophil% 1.4 % (0-1); Eosinophil# 0.36 X10^3/uL; Hematocrit 43.9 % (40-54); Hemoglobin 14.2 g/dL (13.0-16.5); Lymphocyte % 31.2 % (19-41); Mean Corp Hgb Conc 32.3 g/dL (32-36); Mean Corpuscular Hgb 29.2 pg (27.0-32.0); Mean Corpuscular Volume 90.1 fL (80-94); Mean Platelet Vol. 9.5 fl (6.2-12.0); Monocyte# 0.41 X10^3/uL; NRBC Flagged by Analyzer 0 % (0-5); Neutrophil # 2.65 X10^3/uL (2.7-7.7); Neutrophil % 51.6 % (47-70); Platelet Count 288 K/mm3 (150-450); RBC Distribution Width CV 13.2 % (11.6-14.6); Red Blood Count 4.87 M/mm3 (4.6-6.2); White Blood Count 5.1 K/mm3 (4.4-11.0)
[2021-05-08 16:38] LABS: CRP 3.91 mg/L (0.0-3.0); Creatinine, Serum 0.73 mg/dL (0.70-1.30); EST Glomerular Filtration Rate 139 mL/min (>60); Est Glom Filt Rate - Afr Amer 168 mL/min (>60)
== END 2021-05-08 18:00 | disposition home or self-care (01) ==
LOC: HHLAB 15:58
PROVIDERS: PCP Family Medicine; Visit Provider Family Medicine
DX: Z45.2 Encounter for adjustment and management of vascular access device (principal); J86.9 Pyothorax without fistula; B95.4 Other streptococcus as the cause of diseases classified elsewhere
CPT/HCPCS: 82565; 85025; 86140

== ENCOUNTER 2021-05-14 12:10 | Outpatient (RCR) | payer BC, SELFPAY ==
[2021-04-09 04:04] VITALS: BMI 33.3
[2021-05-14 12:29] LABS: Absolute Lymphocyte Count 1.65 X10^3/uL (0.83-4.51); Absolute Neutrophil Count 2.3 X10^3/uL (2.0-7.7); Basophil# 0.06 X10^3/uL; Basophil% 1.3 % (0-1); Eosinophil# 0.29 X10^3/uL; Eosinophils% 6.1 % (0-5); Hematocrit 43.7 % (40-54); Hemoglobin 14.1 g/dL (13.0-16.5); Lymphocyte # 1.65 X10^3/ul (0.83-4.51); Lymphocyte % 34.5 % (19-41); Mean Corp Hgb Conc 32.3 g/dL (32-36); Mean Corpuscular Hgb 29.1 pg (27.0-32.0); Mean Corpuscular Volume 90.1 fL (80-94); Mean Platelet Vol. 9.4 fl (6.2-12.0); Monocyte# 0.45 X10^3/uL; Monocyte% 9.4 % (0-10); NRBC Flagged by Analyzer 0 % (0-5); Neutrophil # 2.28 X10^3/uL (2.7-7.7); Neutrophil % 47.7 % (47-70); Platelet Count 280 K/mm3 (150-450); RBC Distribution Width CV 13.1 % (11.6-14.6); RBC Distribution Width SD 42.8 fl (35.1-43.9); Red Blood Count 4.85 M/mm3 (4.6-6.2); White Blood Count 4.8 K/mm3 (4.4-11.0)
[2021-05-14 13:04] LABS: Creatinine, Serum 0.72 mg/dL (0.70-1.30); EST Glomerular Filtration Rate 142 mL/min (>60); Est Glom Filt Rate - Afr Amer 172 mL/min (>60)
[2021-05-14 16:59] LABS: CRP 5.78 mg/L (0.0-3.0)
== END 2021-05-14 18:00 | disposition home or self-care (01) ==
LOC: HHLAB 12:10
PROVIDERS: PCP Family Medicine
DX: J86.9 Pyothorax without fistula (principal); B95.4 Other streptococcus as the cause of diseases classified elsewhere
CPT/HCPCS: 82565; 85025; 86140